=== PATIENT | female | born 1960 | race Caucasian/White ===

== ENCOUNTER 2017-12-06 19:17 | Emergency (ER) | payer OTHER ==
[~2017-12-06] VITALS: Ht 165.1 cm; Wt 83.9 kg
[~2017-12-06 19:17] MED LIST: ALBUTEROL SULF8.5 GM INH; BENADRYL25 MG ORAL; CYCLOBENZAPRINE10 MG ORAL; IBUPROFEN600 MG ORAL; LEVOTHYROXINE100 MCG ORAL; PREDNISONE20 MG ORAL; QVAR7.3 GM INH; ROBITUSSIN COU118 M4 PO
[2017-12-06 19:35] VITALS: BP 146/87
--- NOTE | 2017-12-06 20:42 | Emergency Room Report ---
History of Present Illness General Chief Complaint: Flu Like Symptoms Present Illness HPI 57 yo female patient presents to ER complaining of cough x10 days. Patient reports cough with sputum, denies blood in sputum. Also complains of congestion during this time; reports taking OTC medications for relief of symptoms. Reports history of similar symptoms during times when her nose gets "stuffy". Patient reports recent chest pain following cough; reports chest pain is reproducible. Denies worsening of chest pain with exertion. Reports hx of contacts with similar symptoms at home. Denies hx of asthma or cardiovascular disease. Denies SOB, difficulty breathing. Denies smoking. Denies PEREZ, vaginal discharge, abdominal pain, nausea, vomiting, diarrhea. Allergies: Coded Allergies: No Known Allergies (Unverified , 12/05/13) Patient History Past Medical History: see triage record Last Menstrual Period: NA Reviewed Nursing Documentation: PMH: Agreed, PSxH: Agreed Review of Systems All Other Systems: negative except mentioned in HPI Physical Exam Vital Signs Date Time Temp Pulse Resp B/P (MAP) Pulse Ox O2 Delivery O2 Flow Rate FiO2 12/06/17 19:24 98.5 79 18 146/87 99 Room Air 98.4 Sp02 EP Interpretation: reviewed, normal General Appearance: well appearing, no apparent distress, alert, GCS 15 Head: normocephalic, atraumatic Eyes: bilateral eye normal inspection, bilateral eye PERRL ENT: hearing grossly normal, normal pharynx, no angioedema, normal voice, TMs + canals normal, uvula midline, moist mucus membranes, nasal congestion Neck: full range of motion Respiratory: lungs clear, normal breath sounds, no rhonchi, no respiratory distress, no accessory muscle use, no wheezing, speaking full sentences Cardiovascular #1: regular rate, rhythm, no edema Gastrointestinal: non tender, soft, no mass, non-distended, no guarding, no rebound Genitourinary: no CVA tenderness Musculoskeletal: back normal, digits/nails normal, gait/station normal, normal range of motion, non-tender Neurologic: alert, oriented x3, responsive, motor strength/tone normal, sensory intact Psychiatric: mood/affect normal Skin: no rash Lymphatic: no adenopathy Medical Decision Making PA Attestation Dr. Hughes is my supervising Physician whom patient management has been discussed with. Diagnostic Impression: Primary Impression: Cough Additional Impression: Nasal congestion ER Course Pt presents to ED c/o cough, congestion, and chest pain. DDX considered but are not limited to asthma, viral URI, influenza, bronchitis. VITAL SIGNS are WNL, patient is afebrile. BP 146/87, similar to previous visits to ER. ORDERS: None required at this time, diagnosis is clinical. ER COURSE: Patient has nasal congestion, no epistaxis, no foul smell. Will provided Sudafed for congestion symptoms. Rest of PE benign, chest pain likely musculoskeletal in nature secondary to cough, does not require cardiac workup at this time. Patient instructed to take NSAIDs as needed for pain symptoms. Patient denies hx of cardiovascular disease, denies smoking. Patient resting comfortably in bed, in no acute distress, nontoxic appearing, talking on phone without difficulty, laughing. Instructed patient to followup with primary care provider for further diagnosis and treatment. Patient requested antibiotics, informed patient she is afebrile, benign PE, lungs clear to auscultation, no SOB, no indication for treatment with antibiotics at this time. DISCHARGE: -Rx given for Sudafed -Rx provided for Albuterol MDI. At this time pt is stable for d/c to home. Patient is resting comfortably in no acute distress, nontoxic appearing, able to answer questions without difficulty. Patient to take medications as instructed Will provide with patient care instructions and any necessary prescriptions. Care plan and follow-up instructions provided. Patient instructed to follow-up with primary care provider in 3 - 5 days for further treatment and referral as needed. Patient questions asked and answered. Patient reports understanding and agreement to treatment plan. ER precautions given. Patient instructed to return to ER immediately for any new or worsening of symptoms including but not limited to increasing SOB, persistent fever. Last Vital Signs Date Time Temp Pulse Resp B/P (MAP) Pulse Ox O2 Delivery O2 Flow Rate FiO2 12/06/17 19:24 98.5 79 18 146/87 99 Room Air 98.4 Disposition: HOME, SELF-CARE Condition: Stable Scripts Albuterol Sulfate* (ALBUTEROL SULFATE MDI*) 8.5 Gm Hfa.aer.ad 2 PUFF INH Q6H, #1 INH 0 Refills Prov: Jamaal John P.Loren 12/06/17 Pseudoephedrine Hcl* (SUDAFED*) 30 Mg Tablet 30 MG PO Q6H for 5 Days, #24 TAB Prov: Jamaal John 12/06/17 Referrals: [facility],REFERRING (PCP) Patient Instructions: Allergies, [id number], Cough, Adult, [id number], Hay Fever, [id number] Additional Instructions: Followup with primary care provider in 3 -5 days. Take medications as directed. Patient questions asked and answered. ER precautions given, patient instructed to return to ER immediately for any new or worsening of symptoms. Jamaal John Dec 06, 2017 20:42
[2017-12-06] MEDS ORDERED: PSEUDOEPHEDRINE30 MG PO (20:53)
[2017-12-06] MEDS ORDERED: ALBUTEROL SULF8.5 GM INH (20:53)
[2017-12-06 21:05] VITALS: BP 146/87
== END 2017-12-06 21:05 | disposition home or self-care (01) ==
LOC: EMR 19:40
DX: R05 Cough (principal); R09.81 Nasal congestion; R07.9 Chest pain, unspecified
CPT/HCPCS: 99283